=== PATIENT | female | born 1970 | race Caucasian/White ===

== ENCOUNTER 2021-06-09 03:26 | Emergency (ER) | payer OTHER ==
[2021-06-09 04:13] LABS: HEMOGLOBIN 11.8 gm/dl (12.3-15.3); RED BLOOD COUNT 4.49 M/UL (4.00-5.10); WHITE BLOOD COUNT 7.7 K/UL (4.5-11.0)
[2021-06-09] MEDS ORDERED: LYRICA200 MG PO ×2 (04:22→05:41)
[2021-06-09 04:52] LABS: BUN/CREATININE RATIO 12 (0-10)
[2021-06-09] MEDS ORDERED: ZOFRAN ODT 4 MG4 MG PO (05:40)
[2021-06-09] MEDS ORDERED: LODINE CAP 300300 MG PO (05:40)
== END 2021-06-09 06:20 | disposition home or self-care (01) ==
LOC: ER1 03:26
PROVIDERS: Physician Assistant
DX: E11.42 Type 2 diabetes mellitus with diabetic polyneuropathy (principal); E11.21 Type 2 diabetes mellitus with diabetic nephropathy; M79.10 Myalgia, unspecified site; Z90.49 Acquired absence of other specified parts of digestive tract; Z20.822 Contact with and (suspected) exposure to COVID-19
CPT/HCPCS: 71045; 80053; 81001; 85025; 87086; 96374; 96375; 99284; J1885; J2405; U0002